=== PATIENT | male | born 1985 | race Caucasian/White ===

== ENCOUNTER 2017-08-29 17:09 | Emergency (ER) | payer OTHER ==
[~2017-08-29] VITALS: Ht 177.8 cm; Wt 82.0 kg
[2017-08-29 17:15] VITALS: BP 146/81
[2017-08-29] MEDS ORDERED: IBUPROFEN 600MG TABLET PO ONE (17:15)
== END 2017-08-29 21:48 | disposition left against medical advice (07) ==
LOC: ER 18:30
DX: M79.675 Pain in left toe(s) (principal)
CPT/HCPCS: 99281